=== PATIENT | female | born 1945 | race Caucasian/White ===

== ENCOUNTER 2017-07-28 01:15 | Inpatient (IN) | payer MEDICARE ==
[2017-07-28] VITALS (10 sets, daily range): BP systolic 88–106; BP diastolic 42–68; PULSE 69–81; RESP 16–18; O2SAT 94–99
[~2017-07-28] VITALS: Ht 160 cm; Wt 59.1 kg
[~2017-07-28 01:15] MED LIST: ALBU8.5H2 INHALATION; CA C1TAB86 PO; EPIN0.3P17 IJ; ESTR10TA VG; FLUT9.9S NOSTRIL; LORA10CA PO; VIT1TABL25 PO
[2017-07-28] MEDS ORDERED: Ondansetron 2 mg/mL 2 mL Inj IVPUSH ONE (02:05)
--- NOTE | 2017-07-28 02:05 | ED.REPORT ---
HPI-Abd Pain F 40 and Over Date of Service Jul 28, 2017 ED Provider: Dany Zurita DO Mrs. Roach is a 71-year-old female who presents with generalized abdominal pain. Pain started suddenly around 6 PM. Pain is sharp in nature. Pain is worse when changing positions. Pain is better with aspirin or drinking water. One episode of loose stools earlier today at 2 PM. Associated symptoms of dizziness and lightheadedness. Patient denies chest pain, shortness of breath, dysuria, frequency, urgency. The patient notes that the previously discovered her appendix is in her left upper quadrant. Nursing Notes Stated Complaint: ABDOMINAL PAIN Chief Complaint: Female Abdominal Pain Allergies: Coded Allergies: No Known Allergies (Verified , 04/13/16) Scheduled Albuterol HFA (Proair HFA) 8.5 Gm Hfa.aer.ad 2 PUFFS INHALATION Q4H Ca Carb & Gluc/Mag Ox & Gluc (Calcium Magnesium Caplet) 1 Each Tablet 600 MG PO DAILY Estradiol (Vagifem) 10 Mcg Tablet 0.5-1 TAB VG 2XWEEKLY Fluticasone Propionate (Flonase Allergy Relief) 50 Mcg/Actuation [place].susp 1 SPRAY NOSTRIL DAILY Scheduled PRN Loratadine (Claritin) 10 Mg Capsule 10 MG PO DAILY PRN PRN For Congestion Miscellaneous Medications Epinephrine (Epinephrine) 0.3 Mg/0.3 Ml Auto.injct 0.3 MG IJ Vit A,C & E/Lutein/Minerals (Ocuvite with Lutein Tablet) 1 Each Tablet 1 EACH PO General Time Seen by MD: 01:55 Chief Complaint Abdominal pain Hx Obtained From: Patient Sudden in Onset?: Yes Onset Occurred: 5 - 8 hours ago Symptom Duration: Waxes and wanes Location: : Diffuse Quality: Sharp Radiation: : Does not radiate Severity: Current: Pain level 5 out of 10 Severity: Maximum: Pain level 7 out of 10 Associated with: Reports: Chills, Nausea, Vomiting, Denies: Diarrhea, Dysuria, Fever Pertinent Negative: Pt denies other symptoms Past Medical History Past Surgical History pacemaker Smoking History Never Smoker Ambulatory Status Independent Review of Systems Basic Review of Systems Eyes: Vision NL, No discharge ENT: Hearing NL, No pain, No nasal congestion, No pharyngeal pain Constitutional: Reports: Chills, Denies: Fever Respiratory: Denies: Shortness of breath, Wheezing Cardiovascular: Denies: Chest pain, Edema GI: Reports: Abdominal pain, Nausea Female: Denies: Dysuria, Flank pain, Pelvic pain, Urinary frequency, Urinary urgency Complete sys rev & neg: except as marked. Physical Exam Vital Signs Vital Signs (First) Date Time Temp Pulse Resp B/P Pulse Ox O2 Delivery O2 Flow Rate FiO2 07/28/17 01:29 37.3 76 16 98/60 96 Room Air Head / Eyes: Atraumatic, Normocephalic, PERRL ENT: Mucous membranes moist, Conjunctiva normal, No scleral icterus Neck: Supple, Non-tender, Full range of motion Lymphatic: No lymphadenopathy Extremities: Vascular intact, Neuro intact, No swelling, No tenderness Skin: Warm, Dry, No cyanosis Neurologic: Alert, Oriented, Nonfocal Psychiatric: Mood/affect normal, Behavior normal, Normal thought content Respiratory / Chest: Breath sounds NL, Breath sounds = bilat, No respiratory distress, No rales, No rhonchi, No wheezing, No stridor Cardiovascular: Heart rate NL, Regular rhythm, Heart sounds NL, Peripheral circulation NL Abdomen: Soft, No guarding, BS normoactive, No distention, No palpable mass, No pulsatile mass Tenderness/Guarding/Rebound: Positive: Rebound diffuse, Tender diffuse Organomegaly / Mass / Hernia: Negative: Hepatomegaly, Splenomegaly Interpretation & Diagnostics Lab Results Interpretation Result Diagram: 07/28/17 0220 07/28/17 0220 Test 07/28/17 02:20 07/28/17 03:00 07/28/17 05:15 White Blood Count 12.7th/mm3 (3.8-10.1) Red Blood Count 4.29mil/mm3 (3.90-5.20) Hemoglobin 13.0g/dL (12.0-15.6) Hematocrit 37.3% (35.0-46.0) Mean Corpuscular Volume 86.9fL (81-100) Mean Corpuscular Hemoglobin 30.3pg (27.0-35.0) Mean Corpuscular Hemoglobin Concent 34.9% (32.0-37.0) Red Cell Distribution Width 11.8% (12.3-15.4) Platelet Count 183bil/L (150-400) Neutrophils (%) (Auto) 90.3% (40-74) Lymphocytes (%) (Auto) 4.4% (14-46) Monocytes (%) (Auto) 4.9% (4-12) Eosinophils (%) (Auto) 0.1% (0-5) Basophils (%) (Auto) 0.1% (0-3) Sodium Level 133mEq/L (134-144) Potassium Level 3.8mEq/L (3.5-5.2) Chloride Level 96mEq/L (97-108) Carbon Dioxide Level 23mmol/L (18-29) Blood Urea Nitrogen 19mg/dL (8-27) Creatinine 0.70mg/dL (0.57-1.00) Estimat Glomerular Filtration Rate 118mL/min (>59) Glucose Level 136mg/dL (60-99) Calcium Level 8.9mg/dL (8.5-10.1) Total Bilirubin 0.6mg/dL (0.0-1.2) Aspartate Amino Transf (AST/SGOT) 51U/L (0-50) Alanine Aminotransferase (ALT/SGPT) 29U/L (0-32) Alkaline Phosphatase 89U/L (25-165) Troponin T 0.010ug/L (0.0-0.011) Total Protein 6.6g/dL (6.4-8.4) Albumin 4.4g/dL (3.4-5.0) Lipase 37U/L (13-60) Urine Color Yellow (YELLOW) Urine Appearance Clear (CLEAR,HAZY) Urine pH 6.0 (5.0-8.0) Urine Specific [place] 1.010 (1.003-1.035) Urine Protein Negativemg/dL (NEG,TRACE) Urine Glucose (UA) Negativemg/dL (NEGATIVE) Urine Ketones Negativemg/dL (NEGATIVE) Urine Occult Blood Trace (NEGATIVE) Urine Nitrite Negative (NEGATIVE) Urine Bilirubin Negative (NEGATIVE) Urine Urobilinogen Normalmg/dL (NORMAL) Urine Leukocyte Esterase Negative (NEGATIVE) Urine RBC 0-2/hpf (0-2) Urine WBC 0-5/hpf (0-5) Urine Epithelial Cells Moderate/hpf (NONE-MOD) Urine Crystals None seen (NONE SEEN) Urine Bacteria Few/hpf (NONE-FEW) Urine Hyaline Casts None/lpf (NONE) Urine Granular Casts None seen (NONE SEEN) Urine Waxy Casts None seen (NONE SEEN) Urine Red Blood Cell Casts None seen (NONE SEEN) Urine White Blood Cell Casts None seen (NONE SEEN) Urine Mucus None seen (None Seen) Urine Trichomonas None seen (NONE SEEN) Urine Yeast None (NONE SEEN) Urinalysis Comment None Urine Culture Reflexed Not indicated Lactic Acid Level 1.2mmol/L (0.4-2.0) ECG Interpretation ECG Interpretation: No significant Changes when compared to previous EKG. Interpreted by: Other (Resident PGY 1) Normal ECG Interpretation: Normal ECG w/ rate of... (70), Normal sinus rhythm Re-Eval/Medical Decision Med Decision/Clinical Course Mrs. Roach is a 71-year-old female who presents to the ED with sudden onset of abdominal pain. Physical exam: her pain is very generalized with some rebound tenderness. Abdomen is soft nondistended. Ordered a CT scan to rule out appendicitis and diverticulitis. To rule out cardiac event we ordered EKG, troponins. Patient was also hypotensive which resolved with a liter of fluid. Discharge & Departure Primary Impression: Colitis Additional Impression: Leukocytosis Leukocytosis type: unspecified Qualified Code: D72.829 - Elevated white blood cell count, unspecified Disposition: ADMITTED TO HOSPITAL Discharge Condition All VS Reviewed: Yes Condition: Stable Patient Instructions: Acute Abdominal Pain (ED), Colitis (ED) Referrals: Josi Tobar MD (PCP) Attending Statement I took a history of performed physical. 71-year-old female with rather precipitous onset diffuse abdominal pain that seems localized to her left abdomen. She tells me that she thinks her appendix on the left side. I am not sure where she came up with this. Either way she had diffuse abdominal tenderness greatest on the left. Remainder of her exam was benign. Laboratory work showed a leukocytosis. Urine did not appear to be infected. CT scan shows evidence of colitis with thickening of the cecum. There are also a few air-fluid levels which may be indicative of an early bowel obstruction. Stool C. difficile has been ordered. Her hypotension resolved with IV fluids. We have good pain control at this time. We will admit her to the hospital for further care and treatment of her colitis and close observation. Cathi Phillips DO Jul 28, 2017 02:05 Dany Zurita DO Jul 28, 2017 05:59
[2017-07-28] MEDS ORDERED: Iohexol 300 mg/mL 30 mL Inj PO ONE (02:25)
[2017-07-28 02:33] LABS: BASOPHILS % (AUTO) 0.1 % (0-3); EOSINOPHILS % (AUTO) 0.1 % (0-5); MONOCYTES % (AUTO) 4.9 % (4-12); Mean Corpuscular Hemoglobin 30.3 pg (27.0-35.0); Mean Corpuscular Volume 86.9 fL (81-100); NEUTROPHILS % (AUTO) 90.3 % (40-74); Platelet Count 183 bil/L (150-400)
[2017-07-28] MEDS ORDERED: 0.9% Sodium Chloride 1,000 ML IV ONE (02:40)
[2017-07-28] MEDS ORDERED: fentaNYL-PF 50 mCg/mL 2 mL Inj IVPUSH PRN (02:40)
[2017-07-28 03:01] LABS: TROPONIN T 0.01 ug/L (0.0-0.011)
[2017-07-28 03:07] LABS: APPEARANCE,URINE CLEAR (CLEAR,HAZY); COLOR,URINE YELLOW (YELLOW); OCCULT BLOOD,URINE TRACE (NEGATIVE); UROBILINOGEN,URINE NORMAL (NORMAL)
[2017-07-28] MEDS: 0.9% Sodium Chloride 1,000 ML IV SCH ×3 (04:51→23:53)
[2017-07-28] MEDS ORDERED: Alum-Mag Hydrox-Simeth 30 mL Suspension PO PRN (04:55)
[2017-07-28] MEDS ORDERED: Polyethylene Glycol (PEG) 17 Gm Powder PO PRN (04:55)
[2017-07-28] MEDS ORDERED: Ondansetron 2 mg/mL 2 mL Inj IVPUSH PRN (04:55)
--- NOTE | 2017-07-28 06:54 | NUR ---
Admission Pt admitted for colitis. Denies abdominal pain. No present nausea. IVF started at 100cc/hr. Pt understands she is NPO. COntact precautions enforced due to possible c diff. at bedside. Oriented to room/phone/call light/bathroom.
[2017-07-28] MEDS ORDERED: Ketorolac 15 mg/mL Inj IVPUSH PRN (08:05)
[2017-07-28] MEDS: Heparin 5,000 Unit/mL Inj SUBQ SCH ×3 (08:30→23:52)
--- NOTE | 2017-07-28 09:27 | NUR ---
Social Work- Initial Assessment Data: See Initial Assessment for additional information. pt is a 71 year old female admitted [place] for colitis, leukocytosis per H&P. Pt's insurance is [employer] [facility]. Pt's PCP is Josi Tobar MD. Pt's readmit risk score is not entered at this time. SW met with pt at bedside to discuss d/c planning, SW role explained. Pt alert and oriented x3. Pt's capacity for self-care assessed. Pt resides in [place] with her spouse where she is independent with ADLs and self-care. Pt's spouse Dav is designated d/c planning contact [phone] & [phone]. Pt has no HH or SNF history, no LTC or VA benefits. Pt uses no DME and drives. Pt has DPOA paperwork but has not completed it at this time. SW provided d/c planning checklist and wrote phone number and plan on whiteboard. Pt anticipated to d/c home with spouse to transport via POV. No anticipated d/c needs, no MD orders received. SW will continue to follow. Assessment: Pt who is independent at baseline with ADLs and self-care Plan: Pt anticipated to d/c home with spouse to transport via POV. No anticipated d/c needs, no MD orders received. SW will continue to follow. AUSTIN Jauregui Addendum: 07/28/17 at 0930 by VEDA STEVEN SS Amended: Links added.
--- NOTE | 2017-07-28 09:57 | DRSVH ---
PROCEDURE: CT ABDOMEN AND PELVIS WITH CONTRAST ([id number]) INDICATIONS: left sided pain, leukocytosis TECHNIQUE: After the administration of oral and intravenous contrast, 5 mm thick sections acquired from the diap hragms to the symphysis. 5 mm thick coronal and sagittal reformats were performed. For radiation do se reduction, the following was used: automated exposure control, adjustment of mA and/or kV accordi ng to patient size. COMPARISON: None. FINDINGS: Image quality: Excellent. ABDOMEN: Lung bases: Lung bases are clear. Heart size is normal. Solid organs: Liver is enlarged with steatosis. The spleen is normal in size and enhancement. Gallb ladder is unremarkable. Biliary system demonstrates a slight biliary dilation. Pancreas enhances nor magdiel. No adrenal nodules. Kidneys are normal in size and enhancement, without hydronephrosis. Peritoneum and bowel: Stomach, small bowel, and colon loops are nonobstructed. There is minimal. Sca ttered small bowel thickening within the left upper quadrant. There is thickening with inflammatory c hange surrounding the cecum. The appendix is not definitively identified. There is also mild appearan ce of thickening within the terminal ileum. Nodes and vessels: No retroperitoneal or mesenteric adenopathy. Aorta and inferior vena cava are no rmal in caliber. Miscellaneous: No ventral hernias. PELVIS: Genitourinary: Bladder wall thickness is normal. Miscellaneous: No inguinal hernias or adenopathy. Bones: No suspicious bony lesions. No vertebral body compression fractures. IMPRESSION: 1. Thickened inflammatory appearance of the cecum suggestive of an infectious or inflammatory etiolog y. There is also thickening of the terminal ileum. Findings could be related to a colitis or inflamma tory bowel disease. It is noted that the appendix is not clearly identified. Cecal inflammatory wood e secondary to a nonvisualized appendicitis cannot be definitively excluded. As clinically indicated, repeat imaging allowing for the oral contrast to be more distal throughout the colon maybe helpful f or additional evaluation. 2. Minimal appearance of small bowel thickening in the left upper quadrant. It is overall nonspecific and could be related to enteritis if clinically appropriate. Dictated by: Anne-Marie Carr M.D. on 07/28/2017 at 9:38 Approved by: Anne-Marie Carr M.D. on 07/28/2017 at 9:55
--- NOTE | 2017-07-28 11:54 | PCM.CONSUR ---
Subjective Date of Service: Jul 28, 2017 History of Present Illness Carlyn Roach is a pleasant 71 year old female with a 1 day history of diffuse, progressively worsening abdominal pain found to have cecal thickening concerning for possible infectious versus inflammatory colitis. General Surgery was consulted for abdominal pain. Initial work up and treatment in the ED also revealed a negative urinalysis, normal EKG, leukocytosis to 12.7 with 90% neutrophils, normal lactic acid and lipase, afebrile, not tachycardic and not hypotensive. She reports onset of sharp diffuse pain after a 10 mile hike yesterday. She thought she may be getting a UTI and bought a home urine test which was negative. She had a normal dinner with dessert but continued to have worsening abdominal pain without nausea, vomiting, diarrhea or constipation and presented for evaluation. She denies recent travel, sick contacts, fevers, chills, myalgias, hematochezia or melena, weight loss, syncopal episodes, or similar abdominal pain in the past. She does have a history of chronic constipation but this is unchanged and she uses psyllium as needed with a typical bowel movement every 2 days. She has no family or personal history of inflammatory bowel disease. 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 Her CT scan today demonstrates cecal wall thickening and terminal ileal thickening with no associated phlegmon, fat stranding, pneumatosis, free air or other intrabdominal pathology. Her appendix cannot be visualized on the CT scan. Reason for Consultation Abdominal pain Allergy Allergies: Coded Allergies: No Known Allergies (Verified , 04/13/16) Medications Albuterol HFA (Proair HFA) 8.5 Gm Hfa.aer.ad 2 PUFFS INHALATION Q4H (Reported) Ca Carb & Gluc/Mag Ox & Gluc (Calcium Magnesium Caplet) 1 Each Tablet 600 MG PO DAILY (Reported) Epinephrine (Epinephrine) 0.3 Mg/0.3 Ml Auto.injct 0.3 MG IJ (Reported) Estradiol (Vagifem) 10 Mcg Tablet 0.5-1 TAB VG 2XWEEKLY (Reported) Fluticasone Propionate (Flonase Allergy Relief) 50 Mcg/Actuation [place].susp 1 SPRAY NOSTRIL DAILY (Reported) Loratadine (Claritin) 10 Mg Capsule 10 MG PO DAILY PRN PRN For Congestion ( Reported) Vit A,C & E/Lutein/Minerals (Ocuvite with Lutein Tablet) 1 Each Tablet 1 EACH PO (Reported) Past Surgical History Surgeries: Yes (PACEMAKER, BROKEN HIP) Patient/Family Past Surgical: Denies:: Anesthesia Reactions, Blood Transfuse Reaction, Blood Transfusions Social History Occupation: Former meeting/event planner Hx Alcohol Use: Yes (3-4 glasses of wine a week.) Hx Substance Use: No PMH HEENT History History of ENT Problems?: No HEENT History: Positive for:: Cataracts (sx) Cardiovascular History History of Heart Problems?: Yes Cardiovascular History: Positive for:: Cardiac Surgery (Pacemaker) Chest Pain (MINOR, HAD A STRESS TEST) Irregular Heartbeat Denies:: Congestive Heart Failure Edema Heart Murmur Hypertension Respiratory History of Respiratory Problem: No Respiratory History: Denies:: Asthma Chest Surgery Dyspnea Pneumonia Tuberculosis Neurological History Hx Neurologic Problems?: No Neurological History: Denies:: CVA Dementia Dizziness Headaches Parkinson's Disease Seizures Gastrointestinal History HX of GI Problems?: No Gastrointestinal History: Denies:: Diverticulitis Gastrointestinal Bleeding Hepatitis Hiatal Hernia Musculoskeletal History Musculoskeletal History: Denies:: Back Injury Joint Replacement Psycho Social History Hx of Psycho/Social Problems?: No Psycho Social History: Denies:: Anxiety Hx Depression Suicide Attempt Other History Hx Any Other Health Problems?: No Other History: Positive for:: Hospitalization (BROKEN HIP) Denies:: Cancer Thyroid Disease Diabetes: No Social History Hx Alcohol Use: Yes (OCCASSIONAL)Hx Substance Use: NoHx Tobacco Use: No Smoking Status: Never Smoker Living Arrangement: Other ( Dav, active hikers) Family History Family History: Mother had heart disease toward the end of life. No family history of GI malignancies or IBD. Objective Exam Vital Signs & I/O Vital Sign- Last 8 Hours Date Time Temp Pulse Resp B/P Pulse Ox O2 Delivery O2 Flow Rate FiO2 07/28/17 09:05 37.3 72 18 104/42 98 Room Air 07/28/17 06:49 72 07/28/17 06:36 37.6 76 17 106/58 94 Room Air Intake and Output- Last 8 Hour 07/28/17 Cumulative From/Thru 07:00 07/28/17 01:29 - 07/28/17 06:36 Intake Total 1000 ml 1000 ml Output Total 200 ml 200 ml Balance 800 ml 800 ml Intake Oral 0 ml 0 ml IV Total 1000 ml 1000 ml Output Urine Total 200 ml 200 ml Lab & Micro Results Laboratory Tests Test 07/28/17 02:20 07/28/17 03:00 07/28/17 05:15 White Blood Count 12.7th/mm3 (3.8-10.1) Red Blood Count 4.29mil/mm3 (3.90-5.20) Hemoglobin 13.0g/dL (12.0-15.6) Hematocrit 37.3% (35.0-46.0) Mean Corpuscular Volume 86.9fL (81-100) Mean Corpuscular Hemoglobin 30.3pg (27.0-35.0) Mean Corpuscular Hemoglobin Concent 34.9% (32.0-37.0) Red Cell Distribution Width 11.8% (12.3-15.4) Platelet Count 183bil/L (150-400) Neutrophils (%) (Auto) 90.3% (40-74) Lymphocytes (%) (Auto) 4.4% (14-46) Monocytes (%) (Auto) 4.9% (4-12) Eosinophils (%) (Auto) 0.1% (0-5) Basophils (%) (Auto) 0.1% (0-3) Sodium Level 133mEq/L (134-144) Potassium Level 3.8mEq/L (3.5-5.2) Chloride Level 96mEq/L (97-108) Carbon Dioxide Level 23mmol/L (18-29) Blood Urea Nitrogen 19mg/dL (8-27) Creatinine 0.70mg/dL (0.57-1.00) Estimat Glomerular Filtration Rate 118mL/min (>59) Glucose Level 136mg/dL (60-99) Calcium Level 8.9mg/dL (8.5-10.1) Total Bilirubin 0.6mg/dL (0.0-1.2) Aspartate Amino Transf (AST/SGOT) 51U/L (0-50) Alanine Aminotransferase (ALT/SGPT) 29U/L (0-32) Alkaline Phosphatase 89U/L (25-165) Troponin T 0.010ug/L (0.0-0.011) Total Protein 6.6g/dL (6.4-8.4) Albumin 4.4g/dL (3.4-5.0) Lipase 37U/L (13-60) Urine Color Yellow (YELLOW) Urine Appearance Clear (CLEAR,HAZY) Urine pH 6.0 (5.0-8.0) Urine Specific [place] 1.010 (1.003-1.035) Urine Protein Negativemg/dL (NEG,TRACE) Urine Glucose (UA) Negativemg/dL (NEGATIVE) Urine Ketones Negativemg/dL (NEGATIVE) Urine Occult Blood Trace (NEGATIVE) Urine Nitrite Negative (NEGATIVE) Urine Bilirubin Negative (NEGATIVE) Urine Urobilinogen Normalmg/dL (NORMAL) Urine Leukocyte Esterase Negative (NEGATIVE) Urine RBC 0-2/hpf (0-2) Urine WBC 0-5/hpf (0-5) Urine Epithelial Cells Moderate/hpf (NONE-MOD) Urine Crystals None seen (NONE SEEN) Urine Bacteria Few/hpf (NONE-FEW) Urine Hyaline Casts None/lpf (NONE) Urine Granular Casts None seen (NONE SEEN) Urine Waxy Casts None seen (NONE SEEN) Urine Red Blood Cell Casts None seen (NONE SEEN) Urine White Blood Cell Casts None seen (NONE SEEN) Urine Mucus None seen (None Seen) Urine Trichomonas None seen (NONE SEEN) Urine Yeast None (NONE SEEN) Urinalysis Comment None Urine Culture Reflexed Not indicated Lactic Acid Level 1.2mmol/L (0.4-2.0) Result Diagram: 07/28/1721907/28/17219 Review of Systems: A 14 point review of systems was performed and negative except as mentioned in HPI above. H&P Surgical Exam Exam General: Alert, Oriented X3, Cooperative, No Acute Distress HEENT: Within normal limits & unremarkable Respiratory: Clear to Auscultation Cardiac: Regular Rate/Rhythm, No Murmurs/Rubs/Gallops Abdomen: Soft, No hepatosplenomegaly, No masses, Other (Non distended. Tender to palpation in the RLQ>LLQ without rebound or guarding.) Additional Information CT Abdomen/Pelvis: ABDOMEN: Lung bases: Lung bases are clear. Heart size is normal. Solid organs: Liver is enlarged with steatosis. The spleen is normal in size and enhancement. Gallbladder is unremarkable. Biliary system demonstrates a slight biliary dilation. Pancreas enhances normally. No adrenal nodules. Kidneys are normal in size and enhancement, without hydronephrosis. Peritoneum and bowel: Stomach, small bowel, and colon loops are nonobstructed. There is minimal. Scattered small bowel thickening within the left upper quadrant. There is thickening with inflammatory change surrounding the cecum. The appendix is not definitively identified. There is also mild appearance of thickening within the terminal ileum. Nodes and vessels: No retroperitoneal or mesenteric adenopathy. Aorta and inferior vena cava are normal in caliber. Miscellaneous: No ventral hernias. PELVIS: Genitourinary: Bladder wall thickness is normal. Miscellaneous: No inguinal hernias or adenopathy. Bones: No suspicious bony lesions. No vertebral body compression fractures. IMPRESSION: 1. Thickened inflammatory appearance of the cecum suggestive of an infectious or inflammatory etiology. There is also thickening of the terminal ileum. Findings could be related to a colitis or inflammatory bowel disease. It is noted that the appendix is not clearly identified. Cecal inflammatory change secondary to a nonvisualized appendicitis cannot be definitively excluded. As clinically indicated, repeat imaging allowing for the oral contrast to be more distal throughout the colon maybe helpful for additional evaluation. 2. Minimal appearance of small bowel thickening in the left upper quadrant. It is overall nonspecific and could be related to enteritis if clinically appropriate. Assessment & Plan Assessment 71 yo F with RLQ abdominal pain associated with cecal and terminal ileum thickening. Differential diagnosis includes infectious versus inflammatory colitis, inflammatory bowel disease, colon cancer, and appendicitis. Her colonoscopy from 6 years ago was thought to be complete and landmarks were visualized in the LUQ with impression of malrotation but CT scan today demonstrates cecum in the RLQ and consistent with the worst area of abdominal pain. We are concerned that she may have had an incomplete colonoscopy previously and would benefit from prep with colonoscopy during this admission to assess her colon and also evaluate for possible inflammatory bowel disease. In addition, the appendix cannot be identified by the radiology or surgical team on her scan. We do think that appendicitis is very unlikely given her hunger, lack of nausea/emesis or fever and mild leukocytosis with no associated fat stranding, fecalith or inflammation in the planes surrounding the thickened cecum and ileum. General Surgery will await Gastroenterology recommendations and colonoscopy results as we follow along with her work up during this hospitalization. Plan: - Gastroenterology consult for consideration of prep with colonoscopy - Continue excellent medical management per primary team - Follow up stool cultures and studies - General Surgery will continue to follow, no indications for surgical intervention at this time Thank you for involving us in her care. Resuscitation Status: CPR: Attempt Resuscitation Deal,Delaney Noel MD Jul 28, 2017 11:53
[2017-07-28 12:18] LABS: Mean Corpuscular Hemoglobin 30.3 pg (27.0-35.0); Mean Corpuscular Volume 88.2 fL (81-100)
[2017-07-28] MEDS ORDERED: PROG100C3 PO (12:41)
--- NOTE | 2017-07-28 15:59 | CONS ---
[address] [address] CONSULTATION REPORT PATIENT: FERMIN RESTREPO : 1945 MR#: [id number] ADMIT: 07/28/2017 JOB ID: [id number] DATE OF SERVICE: REASON FOR CONSULTATION: Suspected colitis. PHYSICIAN REQUESTING CONSULTATION: Dr. Hernandez. HISTORY OF PRESENTING ILLNESS: The patient is a 71-year-old woman whose past medical history is significant for pacemaker placement for history of vasovagal hypotension, who presented to the hospital with complaints of acute onset of right lower quadrant pain that started yesterday at the end of a 10-mile hike that she did yesterday evening. Following the hike, she states the pain was sort of a dull pain. She was, however, able to go dinner and did have dinner. The pain continued to worsen and then she had a brown loose stool. She came to the emergency department for further evaluation. She denied any associated fevers, chills, sweats, nausea or vomiting. She has never had similar pain to this in the past. She reports having had a normal colonoscopy in [address] Nir Howard. She was, however, told that she may have possible malrotation of her colon based on his colonoscopy as well a barium study that she had done almost 10 years prior. PAST MEDICAL HISTORY: Other than vasovagal hypotension is otherwise unremarkable. PAST SURGICAL HISTORY: Includes pacemaker placement. SOCIAL HISTORY: No alcohol, tobacco or illicit drugs, alcohol abuse. FAMILY HISTORY: Negative for inflammatory bowel disease. She did one niece who was diagnosed with colon cancer at the age of 50, but otherwise, the rest of her family history is unremarkable. Her 10 point review of systems is negative except as mentioned in the HPI. CURRENT HOSPITAL MEDICATIONS: Include: 1. Albuterol 2.5 mg q.i.d. 2. Heparin 5000 units subcu q.8. 3. Toradol 15 mg q.6 h. p.r.n. 4. Morphine sulfate 1 mg q.4 p.r.n. 5. Maalox 30 mL q.6 p.r.n. 6. Zofran 4-8 mg q.4 h. p.r.n. 7. Senokot 17.2 mg b.i.d. p.r.n. 8. MiraLAX 17 g daily. 9. Tylenol 650 mg q.4 h. p.r.n. PHYSICAL EXAM: Her temperature is 36.9. Her pulse is 69. Her blood pressure is 88/52. She is asymptomatic. She is not lightheaded and is ambulating without difficulty. Respiratory rate is 18, O2 saturation 94% on room air. Generally, she appears to be in no apparent distress and is oriented to person, place, and time, and answers questions appropriately. HEENT: No pallor. No icterus. Oropharynx is clear. Chest exam: Clear to auscultation bilaterally. Cardiovascular exam: S1, S2 heard. Abdomen: She is soft. She does have some mild tenderness in the right lower quadrant. There is no rebound or guarding. Bowel sounds are appreciated. LABORATORY DATA: Shows a white blood cell count of 11.4, hemoglobin of 11.8, hematocrit 34.3, platelet count of 150. Her white blood cell count yesterday was 12.7 and that has come down, as well as her neutrophil count was 90.3 yesterday. We do not have differentials today. Her BNP is normal. Her lactic acid was 1.2. Her calcium was 8.2. Her LFTs are normal. Her lipase was 37. CT imaging demonstrates thickened inflammatory appearance of the cecum suggestive of infectious or inflammatory process. There is also thickening noted of the terminal ileum. ASSESSMENT/PLAN: A 71-year-old woman presenting with acute onset of right lower quadrant pain with CT findings suggesting terminal ileitis and inflammation of the cecum. Would recommend obtaining stool studies to rule out any infectious etiology. If stool studies are negative, would plan for colonoscopy. I will discuss with Dr. Ortega regarding the possibility of this being appendicitis, though as her pain has improved and there are no obvious CT findings, I feel this to be less likely.Differential includes ischemic colitis vs atypical infectious colitis vs less likely neoplasm. With regards to antibiotics, as her white count has improved, she has been afebrile, and her pain has not worsened, I feel we can hold off at this time. If however, her clinical course should change and she should become febrile and her pain should worsen, would then consider adding broad-spectrum antibiotics. I will review the CT scan with the radiologist, considering patient's history and colonoscopy report that suggested possible malrotation. Thank you for allowing me to participate in the patient's care. If you have any further questions, please do not hesitate to contact me. QUINTEN
[2017-07-28] MEDS ORDERED: PEG/Electrolytes 4,000 mL Solution PO ONE (16:00)
[2017-07-28] MEDS: Albuterol 2.5 mg/3 mL Inhalation Solution NEB SCH (16:00)
--- NOTE | 2017-07-28 18:42 | NUR ---
Colonoscopy: Patient started her Colyte bowel prep at 1730 tonight in preparation for her Colonoscopy tomorrow. Patient is tolerating the liquid without issues.
--- NOTE | 2017-07-28 22:57 | PCM.HPMED ---
Subjective Date of Service Jul 28, 2017 Primary Provider: Admitting Physician: Steven Lloyd MD Primary Care Physician: Josi Tobar MD Attending Physician: Steven Lloyd MD Admit Status: From the Emergency Department Chief Complaint: abdominal pain History of Present Illness: This is a 71-year-old white female with past medical history of a pacemaker that was replaced last year for the second time, SVC stenosis secondary to fibrotic changes in collateralization is presenting today to the ER with abdominal pain that was lowered ventricular rate quadrant as well as lower left quadrant , onset was 6 PM yesterday. she says that she had 3 bowel movements but that is normal for her. she was somewhat nauseated and her pain was better with drinking water and aspirin. she says that since coming to the hospital, she has had no bowel movements. She says that she never had pain like this before. It did improve with a fentanyl that was given to her in the ER. Her nausea resolved after Zofran in the ER. She has not had any food since coming and she is feeling hungry. She states that she had a colonoscopy several years ago in 2010 that showed that her appendix is in the left upper quadrant. She has never had upper GI scope. She states that she becomes short of breath and gets flushed because of her issue with the SVC. She does not believe is an allergy reaction. he states that she is not on much medication at all she only takes loratadine as needed Vagifem twice a week she also takes progesterone 10 mg a month to contact the Vagifem. Visit Her primary care provider she also is Dr. Orozco for her pacemaker follow-up. She is atraumatic, pleasant and alert and oriented by 3. She states that her abdominal pain has resolved but after my examinationit has returned. Upon review of her. Colonoscopy which showed concern for cecal malrotation and cecal positioning of left upper quadrant. In the ER her white count is 12.7 sodium is 133 EKG is normal sinus rhythm, CT abdominopelvic showed evidence of colitis, enteritis, small bowel inflammation. Appendix was not visualized, but cecum was in the RUQ.. C. difficile test is ordered but patient was unable to have any more bowel movements to collect the sample. Patient was admitted to the [facility] team for enteritis, colitis in the cecum Review of Systems: Complete review of systems performed, pertinent positives and negatives per history of present illness, all other systems reviewed and are negative. Allergies Coded Allergies: No Known Allergies (Verified , 04/13/16) Home Medications Vagifem twice a week, Progesterone 10 mg once a month PMH Social History Hx Alcohol Use: Yes (OCCASSIONAL) Hx Substance Use: No Smoking Status: Never Smoker Exam Vital Signs Vital Sign - Last Date Time Temp Pulse Resp B/P Pulse Ox O2 Delivery O2 Flow Rate FiO2 07/28/17 06:49 72 07/28/17 06:36 37.6 17 106/58 94 Room Air Intake and Output 07/27/17 07/27/17 07/28/17 Cumulative From/Thru 15:00 23:00 07:00 07/28/17 01:29 - 07/28/17 06:36 Intake Total 1000 ml 1000 ml Output Total 200 ml 200 ml Balance 800 ml 800 ml Intake Oral 0 ml 0 ml IV Total 1000 ml 1000 ml Output Urine Total 200 ml 200 ml Exam General: No acute distress, pleasant woman, appropriately interactive HEENT: Normocephalic, atraumatic. External ears without defect. Pupils equal, round, and reactive to light and accommodation. Anicteric sclerae, moist conjunctivae, and no lid lag. Oropharynx free of erythema and cobble stoning with moist mucosa. Neck: Supple with full range of motion. No jugular venous distension. No bruits. No lymphadenopathy or thyromegaly. Cardiovascular: Regular rate and rhythm with no murmurs, rubs, or gallops appreciated Pulmonary: Clear to auscultation bilaterally with no crackles, wheezes, or rhonchi. Normal respiratory effort with no use of accessory muscles. Abdomen: Bowel tones present. Soft, mildly tender diffusely, nondistended. No hepatosplenomegaly or masses appreciated. RLQ>RUQ>LLQ. [place] point tenderness Extremities: No clubbing, cyanosis, edema, or lymphadenopathy appreciated. Skin: Normal temperature, turgor, and texture; no rash, ulcers, or subcutaneous nodules appreciated. Neurological: Cranial nerves grossly intact. Normal muscle strength, tone, and bulk. Reflexes, coordination, and sensory function within normal limits. No known gait impairment. Psychiatric: Normal mood and affect. Alert and oriented to person, place, and time. Lab and Diagnostics Result Diagram: 9/24/17 0220 9/24/17 0220 X-Rays, CTs and MRIs PROCEDURE: CT ABDOMEN AND PELVIS WITH CONTRAST ([id number]) INDICATIONS: left sided pain, leukocytosis IMPRESSION: 1. Thickened inflammatory appearance of the cecum suggestive of an infectious or inflammatory etiology. There is also thickening of the terminal ileum. Findings could be related to a colitis or inflammatory bowel disease. It is noted that the appendix is not clearly identified. Cecal inflammatory change secondary to a nonvisualized appendicitis cannot be definitively excluded. As clinically indicated, repeat imaging allowing for the oral contrast to be more distal throughout the colon maybe helpful for additional evaluation. 2. Minimal appearance of small bowel thickening in the left upper quadrant. It is overall nonspecific and could be related to enteritis if clinically appropriate. Dictated by: Anne-Marie Carr M.D. on 07/28/2017 at 9:38 Approved by: Anne-Marie Carr M.D. on 07/28/2017 at 9:55 Assessment & Plan This is a pleasant 71 yo F with SVC stenosis, pacemaker presenting from the ER due to colitis Assessment #1 Inflammatory enteritis/colitis acute present on admission --Pain control with IV morphine, ketorolac -- IV fluids and then normal saline 100 mL per hour -- Gen. surgery was consulted upon review of the imaging with radiology as her appendix cannot be visualized. General surgery have seen her, no indication for surgical management at this time. They recommend a colonoscopy during this admission. WE appreciate their time and effort. -- GI consult were ordered, Dr. Huntley from GI was contacted, will prep pt tonight with waldo. We appreciate their time and effort -- This could be inflammatory bowel disease that is late onset -- Symtomatic therapy at this time Abdominal pain acute improving -- Morphne IV, Ketorolac IV Nausea vomiting acute imroving -- IV Zofran Leukocytosis acute -- 12.7 at admission -- Continue to monitor CODE STATUS: CPR ok, DNI Alternate decision-maker: High-risk medications: IV morphine Patient was admitted under inpatient status with expected length of stay greater than two midnights due to severity of presenting symptoms, risk of adverse event, and complexity of treatment plan. Pain Evaluation: Adequate Pain Control Resuscitation Status: CPR: Attempt Resuscitation (DNI) Time spent 45 Minutes Elizabeth Hernandez DO Jul 28, 2017 07:53
[2017-07-29 01:49] VITALS: BP 102/62; PULSE 69; RESP 18; O2SAT 94
--- NOTE | 2017-07-29 06:06 | NUR ---
colyte prep patient finished 80% of prep. by 0100. then npo. stool is yellow to clear. small amounts of solid still clearing stool this am. x2. care ongoing. Addendum: 07/29/17 at 0633 by JERZY MCLAIN RN stool is yellow and clear.
[2017-07-29 06:25] VITALS: BP 101/63; PULSE 75; RESP 17; O2SAT 94
[2017-07-29 06:41] LABS: Mean Corpuscular Hemoglobin 30.3 pg (27.0-35.0); Mean Corpuscular Volume 90.1 fL (81-100)
[2017-07-29 08:33] VITALS: PULSE 73; RESP 16; O2SAT 96
[2017-07-29 09:04] VITALS: BP 111/67; PULSE 69; RESP 18; O2SAT 96
[2017-07-29] MEDS: Heparin 5,000 Unit/mL Inj SUBQ SCH (09:16)
[2017-07-29 09:59] VITALS: PULSE 66
[2017-07-29] MEDS: 0.9% Sodium Chloride 1,000 ML IV SCH (10:35)
[2017-07-29] MEDS ORDERED: COLL PO (14:20)
--- NOTE | 2017-07-29 14:23 | PCM.DIMED ---
Discharge Instructions Date of Service Jul 29, 2017 Dates of Hospitalization Jul 28, 2017 at 05:32 Discharge Diagnosis Discharge Diagnosis Please take clear liquids till 2PM tomorrow, check directly into Endoscopy area on 07/30/17. Please drink 1/2 of golytely solution starting 9 PM on 07/29/17 Please f/u with PCP in 8 days. Diet Discharge Diet: No restrictions Activity Discharge Activity: No restrictions Call your provider Call your provider for: Fever or Chills, Shortness of breath, Bleeding, Chest pain, Vomitting, Excessive diarrhea, Weakness (unilateral), Other Elizabeth Hernandez DO Jul 29, 2017 14:23
[2017-07-29] MEDS ORDERED: ACET1TAB12 PO (14:46)
[2017-07-29] MEDS ORDERED: ONDA4TAB9 PO (14:47)
--- NOTE | 2017-07-29 14:54 | PCM.DC.MED ---
Discharge Summary Date of Service Jul 29, 2017 Dates of Hospitalization Date of Hospital Admission Jul 28, 2017 at 05:32 Date of Discharge: Jul 29, 2017 Providers: Admitting Physician: Steven Lloyd MD Primary Care Physician: Josi Tobar MD Attending Physician: Steven Lloyd MD Diagnosis at Time of Discharge Diagnosis at Time of Discharge Please take clear liquids till 2PM tomorrow, check directly into Endoscopy area on 07/30/17. Please drink 1/2 of golytely solution starting 9 PM on 07/29/17 Please f/u with PCP in 8 days. Consultations General Surgery, GI Procedures XRay, CTs & MRIs PROCEDURE: CT ABDOMEN AND PELVIS WITH CONTRAST ([id number]) INDICATIONS: left sided pain, leukocytosis IMPRESSION: 1. Thickened inflammatory appearance of the cecum suggestive of an infectious or inflammatory etiology. There is also thickening of the terminal ileum. Findings could be related to a colitis or inflammatory bowel disease. It is noted that the appendix is not clearly identified. Cecal inflammatory change secondary to a nonvisualized appendicitis cannot be definitively excluded. As clinically indicated, repeat imaging allowing for the oral contrast to be more distal throughout the colon maybe helpful for additional evaluation. 2. Minimal appearance of small bowel thickening in the left upper quadrant. It is overall nonspecific and could be related to enteritis if clinically appropriate. Dictated by: Anne-Marie Carr M.D. on 07/28/2017 at 9:38 Approved by: Anne-Marie Carr M.D. 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 she says that she had 3 bowel movements but that is normal for her. she was somewhat nauseated and her pain was better with drinking water and aspirin. she says that since coming to the hospital, she has had no bowel movements. She says that she never had pain like this before. It did improve with a fentanyl that was given to her in the ER. Her nausea resolved after Zofran in the ER. She has not had any food since coming and she is feeling hungry. She states that she had a colonoscopy several years ago in 2010 that showed that her appendix is in the left upper quadrant. She has never had upper GI scope. She states that she becomes short of breath and gets flushed because of her issue with the SVC. She does not believe is an allergy reaction. he states that she is not on much medication at all she only takes loratadine as needed Vagifem twice a week she also takes progesterone 10 mg a month to contact the Vagifem. Visit Her primary care provider she also is Dr. Orozco for her pacemaker follow-up. She is atraumatic, pleasant and alert and oriented by 3. She states that her abdominal pain has resolved but after my examinationit has returned. Upon review of her. Colonoscopy which showed concern for cecal malrotation and cecal positioning of left upper quadrant. In the ER her white count is 12.7 sodium is 133 EKG is normal sinus rhythm, CT abdominopelvic showed evidence of colitis, enteritis, small bowel inflammation. Appendix was not visualized, but cecum was in the RUQ.. C. difficile test is ordered but patient was unable to have any more bowel movements to collect the sample. Patient was admitted to the Green team for enteritis, colitis in the cecum Hospital Course This is a pleasant 71 yo F with SVC stenosis, pacemaker presenting from the ER due to colitis Assessment #1 Inflammatory enteritis/colitis acute present on admission --Pain control with IV morphine, ketorolac -- IV fluids were given -- Gen. surgery was consulted upon review of the imaging with radiology as her appendix cannot be visualized. General surgery have seen her, no indication for surgical management at this time. They recommend a colonoscopy. WE appreciate their time and effort. -- GI consult were ordered, Dr. Huntley from GI was contacted, he plans to do an colonoscopy tomorrow am. Patient is given instructions as below -- This could be inflammatory bowel disease that is late onset -- Symtomatic therapy at this time -- Patient has improved sooner than expected and wanting to go home, tolerating clears, pain is well controlled. Abdominal pain acute improving -- Morphne IV, Ketorolac IV were given here. -- Patient requested only tylenol #3 for discharge Nausea vomiting acute imroving -- IV Zofran was given here. -- PO zofran PRN for d/c Leukocytosis acute resolved on 07/29 -- 12.7 at admission CODE STATUS: FULL Code, verified on 07/29 Alternate decision-maker: Dav High-risk medications: IV morphine Patient was admitted under inpatient status with expected length of stay greater than two midnights due to severity of presenting symptoms, risk of adverse event, and complexity of treatment plan. Exam Vital Signs (Last) Date Time Temp Pulse Resp B/P Pulse Ox O2 Delivery O2 Flow Rate FiO2 07/29/17 09:59 66 07/29/17 09:04 37.1 18 111/67 96 Room Air Exam General: NAD HEENT: NCAT Heart: RRR, no s3/s4 sounds Lungs: CTA, no crackles or wheezes Abd: Soft, NT/ND, mild tenderness in LLQ Psych: affect is pleasant, mood neutral Neuro: No focal deficits Test 07/28/17 02:20 07/28/17 03:00 07/28/17 05:15 07/29/17 06:18 Neutrophils (%) (Auto) 90.3% (40-74) Lymphocytes (%) (Auto) 4.4% (14-46) Monocytes (%) (Auto) 4.9% (4-12) Eosinophils (%) (Auto) 0.1% (0-5) Basophils (%) (Auto) 0.1% (0-3) Troponin T 0.010ug/L (0.0-0.011) Lipase 37U/L (13-60) Urine Color Yellow (YELLOW) Urine Appearance Clear (CLEAR,HAZY) Urine pH 6.0 (5.0-8.0) Urine Specific [place] 1.010 (1.003-1.035) Urine Protein Negativemg/dL (NEG,TRACE) Urine Glucose (UA) Negativemg/dL (NEGATIVE) Urine Ketones Negativemg/dL (NEGATIVE) Urine Occult Blood Trace (NEGATIVE) Urine Nitrite Negative (NEGATIVE) Urine Bilirubin Negative (NEGATIVE) Urine Urobilinogen Normalmg/dL (NORMAL) Urine Leukocyte Esterase Negative (NEGATIVE) Urine RBC 0-2/hpf (0-2) Urine WBC 0-5/hpf (0-5) Urine Epithelial Cells Moderate/hpf (NONE-MOD) Urine Crystals None seen (NONE SEEN) Urine Bacteria Few/hpf (NONE-FEW) Urine Hyaline Casts None/lpf (NONE) Urine Granular Casts None seen (NONE SEEN) Urine Waxy Casts None seen (NONE SEEN) Urine Red Blood Cell Casts None seen (NONE SEEN) Urine White Blood Cell Casts None seen (NONE SEEN) Urine Mucus None seen (None Seen) Urine Trichomonas None seen (NONE SEEN) Urine Yeast None (NONE SEEN) Urinalysis Comment None Urine Culture Reflexed Not indicated Lactic Acid Level 1.2mmol/L (0.4-2.0) White Blood Count 7.8th/mm3 (3.8-10.1) Red Blood Count 3.73mil/mm3 (3.90-5.20) Hemoglobin 11.3g/dL (12.0-15.6) Hematocrit 33.6% (35.0-46.0) Mean Corpuscular Volume 90.1fL (81-100) Mean Corpuscular Hemoglobin 30.3pg (27.0-35.0) Mean Corpuscular Hemoglobin Concent 33.6% (32.0-37.0) Red Cell Distribution Width 12.3% (12.3-15.4) Platelet Count 151bil/L (150-400) Sodium Level 142mEq/L (134-144) Potassium Level 3.7mEq/L (3.5-5.2) Chloride Level 108mEq/L (97-108) Carbon Dioxide Level 22mmol/L (18-29) Blood Urea Nitrogen 11mg/dL (8-27) Creatinine 0.70mg/dL (0.57-1.00) Estimat Glomerular Filtration Rate 118mL/min (>59) Glucose Level 80mg/dL (60-99) Calcium Level 8.1mg/dL (8.5-10.1) Total Bilirubin 0.5mg/dL (0.0-1.2) Aspartate Amino Transf (AST/SGOT) 44U/L (0-50) Alanine Aminotransferase (ALT/SGPT) 32U/L (0-32) Alkaline Phosphatase 82U/L (25-165) Total Protein 5.6g/dL (6.4-8.4) Albumin 3.7g/dL (3.4-5.0) Discharge Medications Discharge Medications Albuterol HFA (Proair HFA) 8.5 Gm Hfa.aer.ad 2 PUFFS INHALATION Q4H (Reported) Ca Carb & Gluc/Mag Ox & Gluc (Calcium Magnesium Caplet) 1 Each Tablet 1,200 MG PO DAILY (Reported) Estradiol (Vagifem) 10 Mcg Tablet 1 TAB VG 2XWEEKLY (Reported) Peg/Electrolytes (Golytely Solution) 4,000 Ml Soln 4,000 ML PO ONCE Prescribed by: ELIZABETH PALOMARES DO Progesterone,Micronized (Prometrium) 100 Mg Capsule 100 MG PO DIRECTED ( Reported) Vit A,C & E/Lutein/Minerals (Ocuvite with Lutein Tablet) 1 Each Tablet 1 EACH PO DAILY (Reported) As needed Acetaminophen/Codeine 300-30mg (Tylenol/Codeine #3) 1 Each Tablet 1 TABLET PO Q4H PRN PRN Pain Prescribed by: ELIZABETH PALOMARES DO Epinephrine (Epinephrine) 0.3 Mg/0.3 Ml Auto.injct 0.3 MG IJ DIRECTED PRN PRN For Anaphyllaxis (Reported) Fluticasone Propionate (Flonase Allergy Relief) 50 Mcg/Actuation [place].susp 1 SPRAY NOSTRIL DAILY PRN PRN For Congestion (Reported) Ondansetron ODT (Zofran ODT) 4 Mg Tablet 4 MG PO Q4H PRN PRN For Nausea Prescribed by: ELIZABETH PALOMARES DO Followup Plan Discharge Diet: No restrictions Discharge Activity: No restrictions Time spent > 35 min spent preparing this discharge of which > 50% spent for coordination and counselling the patient. Elizabeth Palomares DO Jul 29, 2017 14:23
--- NOTE | 2017-07-29 14:55 | NUR ---
Social Work-discharge: Data:EMR Reviewed. Pt is on day 1 of hospitalization for colitis per H&P. Pt is medically stable for discharge. Pt has been up independent in her room. Pt to have outpt colonoscopy tomorrow. SW confirmed with endo department they have pt on the schedule and admitting will contact her insurance company. Pt's to provide transport home today. No other SW needs identified. All updated and agreeable to plan. Assessment:pt who is independent at baseline. Plan:Pt to discharge home today via POV. No discharge needs identified. All updated and agreeable to plan. AUSTIN Foley
[2017-07-29 15:46] VITALS: BP 111/71; PULSE 70; RESP 16; O2SAT 95
--- NOTE | 2017-07-29 16:45 | NUR ---
Discharge Reviewed discharge paperwork, care notes, and medications - disclaimer signed. IV DCd intact, tele removed, all belongings with pt. Reviewed outpt plan for colonscopy with pt, written in notes, will be taking prep tonight and coming in for proceedure tomorrow. Pt declined WC escort, walking out on foot with - strong and steady on feet.
--- NOTE | 2017-07-30 20:35 | PCM.ADCARE ---
Advance Care Planning Note Purpose of Encounter: 07/29/17 To understand patient's goals of care by discussing her current health, treatments and custodial prognosis Parties in Attendance: Patient and Dr. Adam Hernandez Decisional Capacity: Good Subjective: I reviewed her current tayler status, which is excellent and availability of ongoing aggressive care including intubation and potential mechanical ventilation should she be unable to breath on her own; also discussed who would speak on her behalf should she be unable to do so and discussed what conversation she had had with her family so they understand her desires if such situation occurred now or in the future. Objective: Patient is a retired senior production planner, not much medical hx other than a pacemaker and SVC stenosis as a result of pacemaker wire introduction. She has good functional capacity and good quality of life. She is here with sudden onset lower abdominal pain. Plan: We will have General Surgery consult on the case as this is rather sudden for her and she is not a frequent visitor in our system, there are conflicting reports of exactly where her cecum is located, and appendix could not be visualized in the latest CT scan of abd. We feel this will help to understand appendicitis vs. other etiologies of her cecal inflammation. CODE STATUS: CPR ok, DNI ADM: Dav Time Spent Adv.Care Planning: Total time spent [id number] and education directly related to advanced planning 30 min Adv. Care Plan Documenation: As above, also documented in Melina&P Elizabeth Hernandez DO Jul 30, 2017 00:36
[2017-07-31] MEDS ORDERED: METR500T PO (15:31)
== END 2017-07-29 16:49 | disposition home or self-care (01) | DRG 392 ==
LOC: SED 01:15 → MPC 05:32
PROVIDERS: ADMIT Hospitalist; ATTEND Hospitalist
DX: A09 Infectious gastroenteritis and colitis, unspecified (principal); Z95.0 Presence of cardiac pacemaker; Z66 Do not resuscitate